=== PATIENT | male | born 1985 | race Caucasian/White ===

== ENCOUNTER 2023-09-15 16:06 | Emergency (ER) | payer OTHER, SELFPAY ==
--- NOTE | 2023-09-15 16:07 | XR_ITS ---
WS: [id number] Left foot, 3 views, 09/15/2023 Clinical Data: injury Comparison: None. Findings: There is a midshaft fracture of the left first metatarsal. 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 No other fractures are seen. There is soft tissue swelling over the fracture site. There i s a plantar spur and an Achilles spur. Impression: Mid shaft fracture of the left first metatarsal.
[2023-09-15 16:11] VITALS: BP 169/78; PULSE 74; RESP 16; TEMP 36.9; O2SAT 97; BMI 34.4
--- NOTE | 2023-09-15 16:24 | ED_ITS ---
HPI - Extremity Injury (Lower) General: Chief Complaint: Extremity Injury, Lower Stated Complaint: left foot injury Time Seen by Provider: 09/15/23 16:14 History of Present Illness: 38-year-old male patient was at work and a [employer] turned over striking the top of his foot. Patient has noticeable abrasion to the dorsal foot. Patient has strong pedal pulse. Bruising and swelling is also noted. Patient refuses tetanus update. Patient appears in mild pain. Review of Systems General: Reports: 10 or more systems reviewed and unremarkable except in HPI and below Musc: Reports: extremity pain Physical Exam Const: COMMON NORMALS: alert HENMT: COMMON NORMALS: atraumatic HEAD & SCALP: atraumatic Neck/C-Spine: COMMON NORMALS: full ROM Resp: COMMON NORMALS: normal respiratory effort Cardio: COMMON NORMALS: regular rate RATE: regular rate Back/Pelvis: COMMON NORMALS: thoracic and lumbar spine normal to inspection Extremity: LEFT LOWER EXTREMITY: Yes foot & digits (Dorsal abrasion with bruising) Left foot and digits: Yes inspection, Yes palpation, Yes ROM (Decreased due to pain) and Yes neurovascular exam Neuro: SENSORIUM/ORIENTATION: Yes alert Skin: TRAUMA: abrasion (Dorsal foot 5 cm circular) Course ED course: 1649, consulted Dr. Mullins who wanted t o come in and evaluate the foot further for consideration of treatment options. Vital Signs: Vital signs: Vital Signs Temperature 98.5 F 09/15/23 16:11 Pulse Rate 74 09/15/23 16:11 Respiratory Rate 16 09/15/23 16:11 Blood Pressure 169/78 09/15/23 16:11 Pulse Oximetry 97 09/15/23 16:11 Oxygen Delivery Me thod Room Air 09/15/23 16:11 MDM - Extremity Injury (Lower) Medical Decision Making 38-year-old male patient comes in today for complaints of injury to the dorsal foot. On exam he has a dorsal abrasion at approximately 5 cm circular. Pulses are intact. Cap refill is intact. Decreased range of motion due to pain. Differential diagnosis includes but not limited to fracture, contusion, abrasion. X-ray noted a comminuted fracture of the first metatarsal. Reviewed exam with Dr. Mullins who then proceeded to come in to evaluate injury. Pulses were intact. Dr. Mullins recommended a posterior splint with recommendation to follow-up with his office in 1 week. Patient reported understanding of care plan and need for follow-up appointment and further evaluation. XR interpretation done by ED provider, pending radiology final review Discharge Plan Discharge Patient Disposition: Home Clinical Impression: Foot fracture, left Qualifiers: Encounter type: initial encounter Fracture type: closed Qualified Code(s): S92.902A - Unspecified fracture of left foot, initial encounter for closed f racture Condition: Stable Prescriptions: New hydrocodone-acetaminophen 5-325 mg tablet 1 tab PO Q8H PRN (Reason: pain) 7 Days Qty: 21 0RF Discharge Orders: Discharge ED (Routine); Ordered 09/15/23 Ordered By: Vincent Balderrama Referrals: Theodore Mullins DPM [Physician] - Tristan Sanchez MD [Primary Care Provider] - Discharge Diet: Usual diet Discharge Activity: Increase activity as tolerated Patient Instructions: Splint Care (ED) Activity Restrictions/Additional Instructions: Activity as tolerated. No weightbearing to the foot. Keep splint clean and dry. Use crutches for ambulation. Follow-up with primary care for further instructions. Follow-up with Dr. Mullins's office for appointment for next week. Coding Level of Care Code ED Coin Collector for Rigoberto Silva
--- NOTE | 2023-09-15 17:36 | CTR_ITS ---
PROCEDURE INFORMATION: Exam: CT Left Lower Extremity Without Contrast, Foot Exam date and time: 09/15/2023 5:39 PM Age: 38 years old Clinical indication: Injury or trauma; Other: Smashed; Work related; Blunt trauma; Foot; Left TECHNIQUE: Imaging protocol: CT of the left lower extremity without contrast was performed. Exam focused on the foot. Radiation optimization: All CT scans at this facility use at least one of these dose optimization techniques: automated exposure control; mA and/or kV adjustment per patient size (includes targeted exams where dose is matched to clinical indication); or iterative reconstruction. COMPARISON: CR XR foot LT min 3V* [id number] 09/15/2023 4:31 PM RADIATION DOSE METRICS: Total DLP (mGy-cm): 165 FINDINGS: Bones/joints: Displaced fracture of the left 1st metatarsal. Soft tissues: Soft tissue swelling overlying dorsal aspect of the forefoot. CT/CT foot LT wo con* [id number] IMPRESSION: 1. Displaced fracture of the left 1st metatarsal. 2. Soft tissue swelling overlying dorsal aspect of the forefoot.
[2023-09-15] MEDS: bacitracin ointment Pkt 1 EACH TOPICAL (17:38)
[2023-09-15] MEDS: HYDROcodone-acetaminophen 7.5-325 mg Tablet 1 TAB PO (17:38)
--- NOTE | 2023-09-15 17:48 | P.CONIM_ITS ---
Providers/Reason For Consult Consulting Physician/Specialty*: Theodore Mullins D.P.M. Reason for Consult*: Crush injury with first metatarsal fracture left foot Primary Care Provider: Tristan Sanchez MD History of Present Illness History of Present Illness Kaz Vivar is a 38 year old male presents to the emergency department immediately following a crush injury to his left foot. 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 When picked up in the truss became unstable and landed on his foot, states he could not get out of the way quick enough. Immediate pain and unable to bear weight and presented to the emergency department. Patient denies any other concomitant injuries, denies loss of consciousness, denies back or neck pain, no loss of continence. Patient denies any subjective nausea, vomiting, fever, chills, shortness of breath or chest pain. Review of Systems General: Reports: 10 or more systems reviewed and unremarkable except in HPI and below Const: Denies: fever(s) or chills Eyes: Denies: change in vision Card: Denies: chest pain or palpitations Resp: Denies: dyspnea or productive cough GI: Denies: abdominal pain, nausea or vomiting : Denies: flank pain Musc: Reports: extremity pain, joint pain, joint stiffness, limited range of motion and deformity Skin/Breast: Reports: skin tenderness; Denies: rash Neuro: Reports: difficulty walking; Denies: numbness in extremities, sensory changes or frequent falls Psych: Denies: suicidal ideation Tad/Lymph: Denies: easy bruising Medications/Allergies Allergies Allergy/AdvReac Type Severity Reaction Status Date / Time No Known Allergies Allergy Verified 09/15/23 16:13 Vitals/I&O/Wt Last Vital Signs Temp 98.5 F 09/15/23 16:11 Pulse 74 09/15/23 16:11 Resp 16 09/15/23 16:11 BP 169/78 09/15/23 16:11 Pulse Ox 97 09/15/23 16:11 O2 Del Method Room Air 09/15/23 16:11 Weight last 48 hrs Weight 240 lb Physical Exam Const: COMMON NORMALS: no acute distress, patient oriented x3 and alert HENMT: COMMON NORMALS: normocephalic HEAD & SCALP: normocephalic Eye: COMMON NORMALS: Equal, round and reactive pupils present, EOMs intact bilaterally and conjunctivae normal CONJUNCTIVA: Yes conjunctivae normal PUPIL: Yes Equal, round and reactive pupils present Chest: CHEST: Yes Symmetrical chest wall rise Resp: COMMON NORMALS: normal respiratory effort, No use of accessory muscles and clear to auscultation bilaterally EFFORT & INSPECTION: Yes able to speak in complete sentences and Yes symmetric chest movement AUSCULTATION: clear to auscultation bilaterally Cardio: COMMON NORMALS: regular rate, regular rhythm, No murmurs present (Cardio) and Peripheral pulses 2+ throughout RATE: regular rate RHYTHM: regular rhythm PERIPHERAL PULSES: Peripheral pulses 2+ throughout Extremity: COMMON NORMALS: capillary refill normal and no calf tenderness GENERAL: Yes edema LEFT LOWER EXTREMITY: Yes ankle joint (Pain at medial and lateral malleolus.) Left ankle: Yes inspection (Abrasion to the left dorsal forefoot, no laceration or wound.), Yes palpation (Pain to palpation left first metatarsal, no pain at the left ankle. Able t), Yes ROM (Guarded secondary to pain), Yes neurovascular exam (Dorsalis pedis and posterior tibial arteries palpable) and Yes other Neuro: COMMON NORMALS: patient oriented x3 SENSORIUM/ORIENTATION: Yes alert Psych: COMMON NORMALS: mental status grossly normal and cooperative Skin: COMMON NORMALS: no wounds GENERAL SKIN EXAM: no erythema TRAUMA: no lacerations HAIR: general thinning A&P Assessment and plan (1) Crush injury of left foot: Qualifiers: Encounter type: initial encounter Qualified Code(s): S97.82XA - Crushing injury of left foot, initial encounter (2) Displaced fracture of first metatarsal bone, left foot, initial encounter for closed fracture: Plan 38-year-old male presents with crush injury to the left foot, a truss landed on his foot while working construction. X-ray left foot 3 view shows comminuted displaced fracture of left first metatarsal diaphysis, fracture is extra-articular, is a closed fracture. -CT scan left foot for surgical planning, no contrast. -Posterior splint left lower extremity. -Crutches and strict nonweightbearing to the left foot. -Elevate left foot while resting. -Follow-up in podiatry clinic with Dr. Mullins next 09/22/2023 9:00 AM. -Pain medication sent to [facility] -Tentatively planning ORIF left first metatarsal 09/23/2023. Consult Attestations Medical Necessity Statement: Crush injury left foot, first metatarsal fracture Coding Level of Care Code Acute Code for Chg Fwd Diagnoses Crushing injury of left foot, initial encounter S97.82XA Encounter type: initial encounter Displaced fracture of first metatarsal bone, left foot, initial encounter for closed fracture S92.312A
[2023-09-15 18:22] VITALS: BP 119/84; PULSE 77; RESP 16; O2SAT 98
== END 2023-09-15 18:23 | disposition home or self-care (01) ==
PROVIDERS: Emergency Provider Nurse Practitioner Family
DX: S92.312A Displaced fracture of first metatarsal bone, left foot, initial encounter for closed fracture (principal); S90.812A Abrasion, left foot, initial encounter; W20.8XXA Other cause of strike by thrown, projected or falling object, initial encounter; Y99.0 Civilian activity done for income or pay
CPT/HCPCS: 29515; 73630; 73700; 99284; E0114

== ENCOUNTER 2023-09-22 10:37 | Outpatient (CLI) | payer OTHER, SELFPAY | END 2023-09-22 10:38 | disposition home or self-care (01) | PROVIDERS: Visit Provider Podiatrist Foot & Ankle Surgery | DX: Z46.89 Encounter for fitting and adjustment of other specified devices (principal); S92.312D Displaced fracture of first metatarsal bone, left foot, subsequent encounter for fracture with routine healing; X58.XXXD Exposure to other specified factors, subsequent encounter | CPT/HCPCS: 97760; L4361 ==

== ENCOUNTER → 2023-10-06 12:50 | Outpatient (BNVA) | payer OTHER, SELFPAY | PROVIDERS: Visit Provider Podiatrist Foot & Ankle Surgery | DX: S92.312A Displaced fracture of first metatarsal bone, left foot, initial encounter for closed fracture (principal); W20.8XXA Other cause of strike by thrown, projected or falling object, initial encounter | CPT/HCPCS: 73630 ==

== ENCOUNTER → 2023-10-20 14:47 | Outpatient (BNVA) | payer OTHER, SELFPAY | PROVIDERS: Visit Provider Podiatrist Foot & Ankle Surgery | DX: S92.312A Displaced fracture of first metatarsal bone, left foot, initial encounter for closed fracture (principal); W20.8XXA Other cause of strike by thrown, projected or falling object, initial encounter; Z91.199 Patient's noncompliance with other medical treatment and regimen due to unspecified reason | CPT/HCPCS: 73630 ==

== ENCOUNTER → 2023-11-03 13:38 | Outpatient (BNVA) | payer OTHER, SELFPAY | PROVIDERS: Visit Provider Podiatrist Foot & Ankle Surgery | DX: S92.312A Displaced fracture of first metatarsal bone, left foot, initial encounter for closed fracture (principal); S97.82XA Crushing injury of left foot, initial encounter; X58.XXXA Exposure to other specified factors, initial encounter; Z91.199 Patient's noncompliance with other medical treatment and regimen due to unspecified reason | CPT/HCPCS: 73630 ==

== ENCOUNTER → 2023-11-17 12:50 | Outpatient (BNVA) | payer OTHER, SELFPAY | PROVIDERS: Visit Provider Podiatrist Foot & Ankle Surgery | DX: S92.312A Displaced fracture of first metatarsal bone, left foot, initial encounter for closed fracture (principal); W20.8XXA Other cause of strike by thrown, projected or falling object, initial encounter; Z91.199 Patient's noncompliance with other medical treatment and regimen due to unspecified reason | CPT/HCPCS: 73630 ==

== ENCOUNTER → 2024-02-17 12:17 | Outpatient (BNVA) | payer OTHER, SELFPAY | PROVIDERS: Visit Provider Emergency Medicine | DX: M19.072 Primary osteoarthritis, left ankle and foot (principal); M77.32 Calcaneal spur, left foot; X58.XXXD Exposure to other specified factors, subsequent encounter | CPT/HCPCS: 73630 ==

== ENCOUNTER 2024-04-11 09:09 | Outpatient (CLI) | payer OTHER, SELFPAY ==
--- NOTE | 2024-04-11 09:30 | MRR_ITS ---
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 Exam focused on the foot. COMPARISON: Left foot x-ray series 02/17/2024, CT foot LT wo con* [id number] 09/15/2023 5:39 PM FINDINGS: Bones/joints: A healed fracture of the midshaft of the 1st metatarsal is similar in appearance compared with the prior CT, with adjacent mild to moderate bone marrow edema throughout the shaft and the medial aspect of the 1st metatarsal head. Mild osteophyte formation of the 1st metatarsal head is present. Additional small osteophytes are noted at the 2nd through 4th metatarsal heads. No acute fracture. Moderate bone marrow edema throughout the 2nd metatarsal is present, associated with a minimally displaced transverse fracture of the mid to distal shaft with mild periosteal new bone formation at the fracture site, best demonstrated on series 9 images 8 and 11. This fracture was not identified on the prior CT. LIGAMENTS: Lisfranc ligament: Unremarkable. No evidence of tear. TENDONS: Flexor tendons of foot: Unremarkable. No evidence of tear. Tibialis posterior tendon: Unremarkable as visualized. Peroneal tendons: Unremarkable as visualized. Extensor tendons of foot: Unremarkable. No evidence of tear. Tibialis anterior tendon: Unremarkable as visualized. Tarsal canal (Sinus tarsi): Not imaged. Tarsal tunnel: Unremarkable. Soft tissues: A skin marker overlies the dorsal aspect of the 1st metatarsal shaft. Mild interosseous muscle edema is noted surrounding the 2nd metatarsal shaft. Mild subcutaneous edema in the forefoot is present. No focal fluid collection. Plantar fascia: Unremarkable as visualized. MR/MR foot LT wo con* [id number] IMPRESSION: 1. Bone marrow edema in the 2nd metatarsal is noted, associated with a healing, minimally displaced subacute appearing fracture of the mid to distal 2nd metatarsal shaft. 2. Similar appearance of a known healed fracture of the 1st metatarsal shaft, with adjacent bone marrow edema, likely related to stress changes or bone contusion. No acute fracture in this region is identified. 3. First through 4th metatarsophalangeal joint primary osteoarthritic changes. 4. Interosseous muscle edema surrounding the 2nd metatarsal is noted, likely related to strain or contusion.
== END 2024-04-11 09:10 | disposition home or self-care (01) ==
LOC: RAD 09:09
PROVIDERS: Visit Provider Podiatrist Foot & Ankle Surgery
DX: S92.322A Displaced fracture of second metatarsal bone, left foot, initial encounter for closed fracture (principal); M19.072 Primary osteoarthritis, left ankle and foot; W20.8XXA Other cause of strike by thrown, projected or falling object, initial encounter
CPT/HCPCS: 73718